=== PATIENT | female | born 1980 | race Caucasian/White ===

== ENCOUNTER 2021-03-01 12:30 | Outpatient (CLI) | payer OTHER | END 2021-03-01 12:31 | disposition home or self-care (01) | LOC: CSHMRI 12:30 | PROVIDERS: ATTEND Family Medicine | DX: R16.0 Hepatomegaly, not elsewhere classified (principal); D18.03 Hemangioma of intra-abdominal structures | CPT/HCPCS: 74182; 74183 ==